=== PATIENT | female | born 1950 | race Caucasian/White ===

== ENCOUNTER → 2023-06-03 07:37 | Outpatient (REF) | payer OTHER, SELFPAY ==
[2023-06-03 08:38] LABS: % Basophils 1.5 % (0-2); % Eosinophils 6.7 % (0-6); % Lymphocytes 19.1 % (20.5-51.1); % Monocytes 14.5 % (1.7-9.3); % Neutrophils 57.2 % (42.2-75.2); Absolute Basophils 0.1 10^3/uL (0-0.2); Absolute Eosinophils 0.4 10^3/uL (0-0.7); Absolute Immature Granulocytes 0.1 10^3/uL (0-0.05); Absolute Lymphocytes 1.2 10^3/uL (1.2-3.4); Absolute Monocytes 0.9 10^3/uL (0.1-0.6); Absolute Neutrophils 3.5 10^3/uL (1.4-6.5); Hematocrit 40.6 % (37.0-47.0); Hemoglobin 13.3 g/dL (12.0-16.0); Mean Corp Hgb Conc. 32.8 g/dL (33.0-37.0); Mean Corpuscular Volume 88.6 fL (81.0-99.0); Nucleated Red Blood Cells % 0 %; Platelet Count 367 10^3/uL (130-400); Red Blood Cell Count 4.58 10^6/uL (4.20-5.40); Red Cell Dist. Width 13.2 % (11.5-14.5); White Blood Cell Count 6.1 10^3/uL (4.8-10.8)
[2023-06-03 08:57] LABS: ALT (SGPT) 15 U/L (0-35); AST (SGOT) 23 U/L (14-36); Albumin 3.7 g/dl (3.5-5.0); Alkaline Phosphatase 55 U/L (38-126); Blood Urea Nitrogen 18 mg/dl (7-17); Calcium 9.4 mg/dl (8.4-10.2); Carbon Dioxide 32 mmol/L (22-30); Chloride 100 mmol/L (98-107); Glucose 83 mg/dl (70-99); HDL Cholesterol 77 mg/dl; LDL Cholesterol, Calculated 78 mg/dl; Potassium 4.6 mmol/L (3.5-5.1); Sodium 139 mmol/L (135-145); Total Bilirubin 0.6 mg/dl (0.2-1.3); Total Cholesterol 184 mg/dl (50-199); Total Protein 6.4 g/dl (6.3-8.2); Triglyceride 148 mg/dl (10-149); Very Low Density Lipoprotein 29 mg/dl (0-30); eGFR 53.39
[2023-06-03 09:21] LABS: TSH 3.78 uIU/ml (0.47-4.68)
[2023-06-03 09:57] LABS: Folate > 20.0 ng/ml (2.76-20); Vitamin B12 683 pg/ml (239-931)
== END ==
LOC: REG 07:37
PROVIDERS: ATTENDING PHYSICIAN Family Medicine
DX: E78.00 Pure hypercholesterolemia, unspecified (principal); M79.2 Neuralgia and neuritis, unspecified; I10 Essential (primary) hypertension; F32.0 Major depressive disorder, single episode, mild
CPT/HCPCS: 36415; 80053; 80061; 82607; 82746; 84443; 85025

== ENCOUNTER → 2023-09-24 13:42 | Outpatient (REF) | payer OTHER, SELFPAY ==
[2023-09-24 15:34] LABS: % Basophils 1.4 % (0-2); % Eosinophils 5.7 % (0-6); % Immature Granulocytes 0.4 % (0-0.5); % Lymphocytes 19.4 % (20.5-51.1); % Neutrophils 65.1 % (42.2-75.2); Absolute Basophils 0.1 10^3/uL (0-0.2); Absolute Eosinophils 0.5 10^3/uL (0-0.7); Absolute Lymphocytes 1.5 10^3/uL (1.2-3.4); Absolute Monocytes 0.6 10^3/uL (0.1-0.6); Absolute Neutrophils 5.1 10^3/uL (1.4-6.5); Hematocrit 41.1 % (37.0-47.0); Hemoglobin 13.3 g/dL (12.0-16.0); Mean Corp Hgb Conc. 32.4 g/dL (33.0-37.0); Mean Corpuscular Hgb 28.2 pg (27.0-31.0); Mean Corpuscular Volume 87.3 fL (81.0-99.0); Mean Platelet Volume 9.5 fL (7.4-10.4); Nucleated Red Blood Cells % 0 %; Platelet Count 386 10^3/uL (130-400); Red Blood Cell Count 4.71 10^6/uL (4.20-5.40); Red Cell Dist. Width 12.5 % (11.5-14.5); White Blood Cell Count 7.9 10^3/uL (4.8-10.8)
[2023-09-24 15:50] LABS: ALT (SGPT) 15 U/L (0-35); AST (SGOT) 27 U/L (14-36); Albumin 4.2 g/dl (3.5-5.0); Alkaline Phosphatase 72 U/L (38-126); Blood Urea Nitrogen 15 mg/dl (7-17); Calcium 9.8 mg/dl (8.4-10.2); Carbon Dioxide 31 mmol/L (22-30); Chloride 100 mmol/L (98-107); Erythrocyte Sed Rate 13 mm/hour (0-20); Glucose 107 mg/dl (70-99); Potassium 4.5 mmol/L (3.5-5.1); Sodium 138 mmol/L (135-145); Total Bilirubin 0.3 mg/dl (0.2-1.3); Total Protein 7.2 g/dl (6.3-8.2); eGFR 59.86
[2023-09-24 15:54] LABS: C-Reactive Protein < 5.00 mg/L (0.0-10.00)
== END ==
LOC: REG 13:42
PROVIDERS: ATTENDING PHYSICIAN Internal Medicine Rheumatology; FAMILY PHYSICIAN Family Medicine
DX: G62.9 Polyneuropathy, unspecified (principal); M15.4 Erosive (osteo)arthritis; M18.0 Bilateral primary osteoarthritis of first carpometacarpal joints; M35.3 Polymyalgia rheumatica; M81.0 Age-related osteoporosis without current pathological fracture; Z51.81 Encounter for therapeutic drug level monitoring
CPT/HCPCS: 36415; 80053; 85025; 85652; 86140

== ENCOUNTER → 2023-10-30 10:50 | Outpatient (REF) | payer OTHER, SELFPAY | LOC: RAD 10:50 | PROVIDERS: ATTENDING PHYSICIAN Internal Medicine Rheumatology; FAMILY PHYSICIAN Family Medicine | DX: M25.551 Pain in right hip (principal); M25.559 Pain in unspecified hip; M25.552 Pain in left hip | CPT/HCPCS: 73523 ==

== ENCOUNTER → 2023-12-03 09:33 | Outpatient (REF) | payer OTHER, SELFPAY ==
[2023-12-03 11:18] LABS: % Basophils 1.6 % (0-2); % Eosinophils 6.9 % (0-6); % Immature Granulocytes 0.6 % (0-0.5); % Lymphocytes 23.2 % (20.5-51.1); % Monocytes 9.7 % (1.7-9.3); Absolute Basophils 0.1 10^3/uL (0-0.2); Absolute Eosinophils 0.3 10^3/uL (0-0.7); Absolute Lymphocytes 1.2 10^3/uL (1.2-3.4); Absolute Monocytes 0.5 10^3/uL (0.1-0.6); Absolute Neutrophils 2.9 10^3/uL (1.4-6.5); Hematocrit 37.1 % (37.0-47.0); Hemoglobin 12.3 g/dL (12.0-16.0); Mean Corp Hgb Conc. 33.2 g/dL (33.0-37.0); Mean Corpuscular Hgb 27.9 pg (27.0-31.0); Mean Corpuscular Volume 84.1 fL (81.0-99.0); Mean Platelet Volume 9.4 fL (7.4-10.4); Nucleated Red Blood Cells % 0 %; Platelet Count 392 10^3/uL (130-400); Red Blood Cell Count 4.41 10^6/uL (4.20-5.40); Red Cell Dist. Width 13.4 % (11.5-14.5)
[2023-12-03 11:40] LABS: ALT (SGPT) 12 U/L (0-35); AST (SGOT) 21 U/L (14-36); Albumin 3.9 g/dl (3.5-5.0); Alkaline Phosphatase 69 U/L (38-126); Blood Urea Nitrogen 21 mg/dl (7-17); Calcium 9.7 mg/dl (8.4-10.2); Carbon Dioxide 28 mmol/L (22-30); Chloride 103 mmol/L (98-107); Glucose 69 mg/dl (70-99); Potassium 4.1 mmol/L (3.5-5.1); Sodium 138 mmol/L (135-145); Total Bilirubin 0.3 mg/dl (0.2-1.3); Total Protein 6.6 g/dl (6.3-8.2); eGFR > 60.00
[2023-12-03 11:47] LABS: C-Reactive Protein < 5.00 mg/L (0.0-10.00)
[2023-12-03 12:41] LABS: Erythrocyte Sed Rate 5 mm/hour (0-20)
== END ==
LOC: RAD 09:33
PROVIDERS: ATTENDING PHYSICIAN Internal Medicine Rheumatology; FAMILY PHYSICIAN Family Medicine
DX: M15.4 Erosive (osteo)arthritis (principal); M35.3 Polymyalgia rheumatica; M81.0 Age-related osteoporosis without current pathological fracture; R10.2 Pelvic and perineal pain
CPT/HCPCS: 36415; 72110; 72170; 80053; 85025; 85652; 86140

== ENCOUNTER → 2024-02-04 06:19 | Day surgery (SDC) | payer OTHER, SELFPAY | LOC: GI 06:19 | PROVIDERS: ATTENDING PHYSICIAN Surgery; FAMILY PHYSICIAN Family Medicine | DX: Z12.11 Encounter for screening for malignant neoplasm of colon (principal); Z86.0100 Personal history of colon polyps, unspecified; Z80.0 Family history of malignant neoplasm of digestive organs; D12.0 Benign neoplasm of cecum; K63.5 Polyp of colon | CPT/HCPCS: 45385; 45380; 88305 ==

== ENCOUNTER 2024-02-19 10:57 | Outpatient (RCR) | payer OTHER, SELFPAY | END 2024-02-19 23:59 | disposition home or self-care (01) | LOC: RPT 10:57 | PROVIDERS: ATTENDING PHYSICIAN Student in an Organized Health Care Education/Training Program; FAMILY PHYSICIAN Family Medicine | DX: M76.32 Iliotibial band syndrome, left leg (principal); M25.552 Pain in left hip; M25.551 Pain in right hip; M19.90 Unspecified osteoarthritis, unspecified site; Z73.6 Limitation of activities due to disability; E26.89 Other hyperaldosteronism; R26.89 Other abnormalities of gait and mobility; G62.9 Polyneuropathy, unspecified; Z85.3 Personal history of malignant neoplasm of breast; Z87.39 Personal history of other diseases of the musculoskeletal system and connective tissue; Z96.651 Presence of right artificial knee joint | CPT/HCPCS: 97110; 97162; 97535 ==

== ENCOUNTER 2024-03-30 06:07 | Day surgery (SDC) | payer OTHER, SELFPAY ==
[2024-03-03 11:15] VITALS: BMI 25.5
[2024-03-03 11:31] LABS: Hematocrit 38.8 % (37.0-47.0); Hemoglobin 12.9 g/dL (12.0-16.0); Mean Corp Hgb Conc. 33.2 g/dL (33.0-37.0); Mean Corpuscular Hgb 28.4 pg (27.0-31.0); Mean Corpuscular Volume 85.5 fL (81.0-99.0); Mean Platelet Volume 9.1 fL (7.4-10.4); Platelet Count 405 10^3/uL (130-400); Red Blood Cell Count 4.54 10^6/uL (4.20-5.40); Red Cell Dist. Width 12.9 % (11.5-14.5); White Blood Cell Count 5.8 10^3/uL (4.8-10.8)
[2024-03-03 12:44] LABS: ALT (SGPT) 13 U/L (0-35); AST (SGOT) 23 U/L (14-36); Albumin 4.3 g/dl (3.5-5.0); Alkaline Phosphatase 62 U/L (38-126); Blood Urea Nitrogen 20 mg/dl (7-17); Calcium 10.1 mg/dl (8.4-10.2); Carbon Dioxide 28 mmol/L (22-30); Chloride 101 mmol/L (98-107); Estimated Creatinine Clearance 49 ml/min; Glucose 86 mg/dl (70-99); Potassium 4.4 mmol/L (3.5-5.1); Sodium 141 mmol/L (135-145); Total Bilirubin 0.3 mg/dl (0.2-1.3); Total Protein 7.2 g/dl (6.3-8.2); eGFR 59.49
[2024-03-03 13:06] LABS: Glycohemoglobin (HgbA1c) 5.4 % (4.0-5.6)
--- NOTE | 2024-03-16 10:17 | VNURNOTE ---
Patient is scheduled for an elective L V[facility]ASQUEZ on 03/30/24- she is a same day patient with Dr Snow. Spoke with patient prior to surgery. Introduced role of [facility] Liaison. Patient reports that she lives with her spouse in [place] home.
There are 4 small steps to enter.
She has a raised toilet seat, cane and rolling walker.
PCP is Dr Churchill
Discussed [facility] joint protocol and post surgical plans. She has 4 dogs. Pet policy reviewed.
Reviewed that she will have [facility] services initially and will then start outpatient PT.
Patient selects [facility] for home care needs and [facility]. Scheduled for 04/02.
Patient is in agreement with plan and states that her spouse will be home with her. Advised to bring RW day of surgery. Referral placed in [facility].
Plan: [facility] per [facility] joint protocol then outpt PT on 04/02
[2024-03-24 11:22] VITALS: BMI 25.5
[2024-03-30] VITALS (16 sets, daily range): BP systolic 79–147; BP diastolic 53–90; PULSE 67; O2SAT 99
[2024-03-30] MEDS: CELEBREX 200 MG PO (06:27)
[2024-03-30] MEDS: TYLENOL 650 MG PO (06:39)
--- NOTE | 2024-03-30 07:26 | W.DS.TRANS ---
DC Summary - Delivery Analyst
-
Discharge Instructions:
Sleep Apnea Risk Low
Discharge Diagnosis/Procedures Left hip replacement-Dr. Snow 03/30/24
Diet As tolerated
Activity As tolerated,With Walker
Driving Restrictions No driving
Bathing Restrictions OK to Shower
Wound Care Aquacel dressing in place then remove 7-10 days
Instructions:
Stand-Alone Forms: SDS Total Hip and Knee D/C
Changes to Home Medications: Yes
Discharge Medications:
DC Medications w/original date entered in [employer]
rabeprazole 20 mg tablet,delayed release (AcipHex) 20 mg PO DAILY Gastrointestinal issue 12/15/14
L.acidoph, paracasei,B. lactis 10 billion cell capsule 1 cap PO DAILY Supplement 07/02/19
anastrozole 1 mg tablet 1 mg PO DAILY Cancer ##0 07/02/19
bupropion HCl 300 mg 24 hr tablet, extended release 150 mg PO DAILY Depression ##0 07/02/19
calcium carbonate 600 mg PO BID Supplement 07/02/19
cetirizine 10 mg tablet 10 mg PO DAILYPRN PRN allergies 07/02/19
fluticasone propionate 50 mcg/actuation nasal spray,suspension 1 spray intranasal DAILYPRN PRN nasal congestion 07/02/19
rosuvastatin 5 mg tablet 5 mg PO DAILY High cholesterol ##0 07/02/19
cholecalciferol (vitamin D3) 50 mcg (2,000 unit) tablet 2,000 units PO DAILY Supplement 05/09/20
metoprolol succinate 50 mg tablet,extended release 24 hr 50 mg PO HS Blood pressure 05/09/20
polyethylene glycol 3350 17 gram oral powder packet 17 grams PO HS Constipation 09/15/20
acetaminophen 325 mg tablet (Tylenol) 325 mg PO ONCE 03/24/24
celecoxib 200 mg capsule (Celebrex) 200 mg PO DAILY 03/24/24
mupirocin 2 % topical ointment 1 applic topical BID 03/24/24
tramadol 50 mg tablet 50 mg PO Q6H PRN pain 03/24/24
acetaminophen 500 mg capsule 1,000 mg (2 x 500 mg) PO Q6H PRN Pain #60 caps 03/30/24
aspirin 325 mg tablet 325 mg PO DAILY #30 tabs 03/30/24
cefadroxil 500 mg capsule 500 mg PO BID #14 caps 03/30/24
dexamethasone 4 mg tablet 4 mg PO BID #7 tabs 03/30/24
docusate sodium 100 mg capsule (Colace) 100 mg PO BID #14 caps 03/30/24
ondansetron 4 mg disintegrating tablet 4 mg PO Q8H #14 tabs 03/30/24
oxycodone 5 mg tablet 5 mg PO Q6H PRN Pain #30 tabs 03/30/24
sennosides 8.6 mg tablet (Senokot) 8.6 mg PO BID PRN Constipation #14 tabs 03/30/24
Home Medication Changes
acetaminophen 325 mg tablet (Tylenol) 325 mg PO ONCE 03/24/24
celecoxib 200 mg capsule (Celebrex) 200 mg PO DAILY 03/24/24
mupirocin 2 % topical ointment 1 applic topical BID 03/24/24
tramadol 50 mg tablet 50 mg PO Q6H PRN pain 03/24/24
acetaminophen 500 mg capsule 1,000 mg (2 x 500 mg) PO Q6H PRN Pain #60 caps 03/30/24
aspirin 325 mg tablet 325 mg PO DAILY #30 tabs 03/30/24
cefadroxil 500 mg capsule 500 mg PO BID #14 caps 03/30/24
dexamethasone 4 mg tablet 4 mg PO BID #7 tabs 03/30/24
docusate sodium 100 mg capsule (Colace) 100 mg PO BID #14 caps 03/30/24
ondansetron 4 mg disintegrating tablet 4 mg PO Q8H #14 tabs 03/30/24
oxycodone 5 mg tablet 5 mg PO Q6H PRN Pain #30 tabs 03/30/24
sennosides 8.6 mg tablet (Senokot) 8.6 mg PO BID PRN Constipation #14 tabs 03/30/24
Pending Results: No
[2024-03-30] MEDS: ROXICODONE 5 MG PO (11:42)
[2024-03-30] MEDS: ANCEF 5 IV (12:03)
== END 2024-03-30 13:48 | disposition home or self-care (01) ==
LOC: SDS 06:07
PROVIDERS: ATTENDING PHYSICIAN Specialist; FAMILY PHYSICIAN Family Medicine; OTHER PHYSICIAN Internal Medicine Rheumatology; REFERRING PHYSICIAN Internal Medicine Interventional Cardiology
PROC: 0SRB0JZ Replacement of Left Hip Joint with Synthetic Substitute, Open Approach (ICD-10-PCS; 2024-03-30)
DX: M16.12 Unilateral primary osteoarthritis, left hip (principal); I10 Essential (primary) hypertension; E78.00 Pure hypercholesterolemia, unspecified; I34.1 Nonrheumatic mitral (valve) prolapse; I49.3 Ventricular premature depolarization; K21.9 Gastro-esophageal reflux disease without esophagitis; Z79.811 Long term (current) use of aromatase inhibitors
CPT/HCPCS: 27130; 36415; 73502; 80053; 83036; 85027; 87070; 97116; 97162; 97530; C1713; C1776

== ENCOUNTER 2024-04-17 11:41 | Outpatient (RCR) | payer OTHER, SELFPAY | END 2024-04-17 23:59 | disposition home or self-care (01) | LOC: RPT 11:41 | PROVIDERS: ATTENDING PHYSICIAN Specialist; FAMILY PHYSICIAN Family Medicine | DX: Z47.1 Aftercare following joint replacement surgery (principal); M16.12 Unilateral primary osteoarthritis, left hip; Z73.6 Limitation of activities due to disability; M62.81 Muscle weakness (generalized); Z96.642 Presence of left artificial hip joint; Z96.651 Presence of right artificial knee joint | CPT/HCPCS: 97110; 97116; 97140; 97162; 97530; 97535 ==

== ENCOUNTER 2024-05-21 12:46 | Outpatient (RCR) | payer OTHER, SELFPAY | END 2024-05-21 23:59 | disposition home or self-care (01) | LOC: RPT 12:46 | PROVIDERS: ATTENDING PHYSICIAN Specialist; FAMILY PHYSICIAN Family Medicine | DX: Z47.1 Aftercare following joint replacement surgery (principal); M16.12 Unilateral primary osteoarthritis, left hip; Z73.6 Limitation of activities due to disability; M62.81 Muscle weakness (generalized); G62.0 Drug-induced polyneuropathy; T45.1X5D Adverse effect of antineoplastic and immunosuppressive drugs, subsequent encounter; R26.89 Other abnormalities of gait and mobility; Z96.642 Presence of left artificial hip joint; Z96.651 Presence of right artificial knee joint; Z85.3 Personal history of malignant neoplasm of breast | CPT/HCPCS: 97110; 97530 ==

== ENCOUNTER 2024-05-28 12:46 | Outpatient (RCR) | payer OTHER, SELFPAY | END 2024-05-29 07:15 | disposition home or self-care (01) | LOC: RPT 12:46 | PROVIDERS: ATTENDING PHYSICIAN Specialist; FAMILY PHYSICIAN Family Medicine | DX: Z47.1 Aftercare following joint replacement surgery (principal); M16.12 Unilateral primary osteoarthritis, left hip; Z73.6 Limitation of activities due to disability; M79.605 Pain in left leg; G62.0 Drug-induced polyneuropathy; T45.1X5D Adverse effect of antineoplastic and immunosuppressive drugs, subsequent encounter; R26.89 Other abnormalities of gait and mobility; Z96.642 Presence of left artificial hip joint; Z85.3 Personal history of malignant neoplasm of breast; Z96.651 Presence of right artificial knee joint; M62.81 Muscle weakness (generalized) | CPT/HCPCS: 97110; 97530 ==

== ENCOUNTER → 2025-03-04 08:16 | Outpatient (REF) | payer OTHER, SELFPAY ==
[2025-03-04 09:35] LABS: Hematocrit 40.5 % (37.0-47.0); Hemoglobin 13.1 g/dL (12.0-16.0); Mean Corp Hgb Conc. 32.3 g/dL (33.0-37.0); Mean Corpuscular Volume 83.7 fL (81.0-99.0); Nucleated Red Blood Cells % 0 %; Platelet Count 480 10^3/uL (130-400); Red Cell Dist. Width 14.0 % (11.5-14.5)
[2025-03-04 10:38] LABS: ALT (SGPT) 14 U/L (0-35); AST (SGOT) 22 U/L (14-36); Albumin 4.3 g/dl (3.5-5.0); Alkaline Phosphatase 66 U/L (38-126); Blood Urea Nitrogen 21 mg/dl (7-17); Calcium 9.6 mg/dl (8.4-10.2); Carbon Dioxide 32 mmol/L (22-30); Chloride 102 mmol/L (98-107); Glucose 82 mg/dl (70-99); HDL Cholesterol 63 mg/dl; LDL Cholesterol, Calculated 111 mg/dl; Potassium 4.7 mmol/L (3.5-5.1); Sodium 135 mmol/L (135-145); Total Protein 7.5 g/dl (6.3-8.2); Very Low Density Lipoprotein 14 mg/dl (0-30); eGFR 59.12
== END ==
LOC: REG 08:16
PROVIDERS: ATTENDING PHYSICIAN Family Medicine
DX: I10 Essential (primary) hypertension (principal); E78.00 Pure hypercholesterolemia, unspecified; E66.3 Overweight
CPT/HCPCS: 36415; 80053; 80061; 84439; 84443; 85025